=== PATIENT | male | born 1990 | race American Indian/Alaskan Native ===

== ENCOUNTER 2017-07-05 11:08 | Emergency (ER) | payer SELFPAY ==
[2017-07-05 11:14] VITALS: BP 140/90
--- NOTE | 2017-07-05 13:10 | Emergency Department Report ---
Chief Complaint: Urogenital-Male Stated Complaint: YELLOW DISCHARGE Time Seen by Provider: 07/05/17 12:52 - HPI History of Present Illness: This is a 27-year-old male nontoxic, well nourished in appearance, no acute signs of distress presents to the ED complaining of penile discharge x4 days. Patient he had a sexual intercourse last week prior to symptoms and then developed the symptoms one week ago. Patient denies any testicular pain, penile ulcers, or lesions. Patient describes discharge as white yellow colored. Patient denies any other urinary symptoms. Patient denies any fever, chills, nausea, vomiting, chest pain, short of breath, abdominal pain, back pain , stiff neck or headache. Patient denies any allergies or past medical history. - Exam Vital Signs: Vital Signs 07/05/17 11:13 Temperature 98.8 F Pulse Rate 72 Respiratory 16 Rate Blood Pressure 140/90 O2 Sat by Pulse 99 Oximetry Physical Exam: GENERAL: The patient is a well-developed, well-nourished in no apparent distress. Patient is alert and acting appropriately for age. Alert and oriented 3, no apparent distress, normal gait, atraumatic. LUNGS: Clear to auscultation. Non labor breathing. No intercostal retractions. Symmetrical with respiration, no wheezing, no rales, or crackles. HEART: Regular rate and rhythm without murmur, rubs or gallops. No reproducible. S1, S2 present, regular rate and rhythm without murmur, no rubs, no gallops. ABDOMEN: Soft, nontender, and nondistended. Positive bowel sounds. No hepatosplenomegaly was noted. No guarding or rebound tenderness, negative epigastric bruit. Negative psoas sign, negative barton sign, negative McBurneys sign MSE screening note: Focused history and physical exam performed. Due to findings the following was ordered: ED Medical Decision Making - Medical Decision Making This is a 27-year-old male that presents with nonmedical emergency. Patient is stable and was examined by me. Patient is asymptomatic and denies any symptoms. Patient states he just wants to be tested for STD. Design Analyst has approached patient for a co-pay but patient refused. I will refer the patient [facility] and health Department. At time of discharge, the patient does not seem toxic or ill in appearance. No acute signs of distress noted. Patient agrees to discharge treatment plan of care. No further questions noted by the patient. ED Disposition for MSE Clinical Impression: Possible exposure to STD Disposition: MED SCREENING EXAM-LEFT Is pt being admited?: No Does the pt Need Aspirin: No Condition: Stable Additional Instructions: Follow-up with a primary care doctor in 3-5 days or if symptoms worsen and continue return to emergency room as soon as possible. Referrals: PRIMARY MD SAM [Primary Care Provider] - 3-5 Days KARIN CANCINO MD [Staff Physician] - 3-5 Days [facility] [Outside] - 3-5 Days [facility] [Outside] - 3-5 Days
== END 2017-07-05 13:12 | disposition left against medical advice (07) ==
LOC: ED 11:08
DX: Z20.2 Contact with and (suspected) exposure to infections with a predominantly sexual mode of transmission (principal)
CPT/HCPCS: 99281